=== PATIENT | female | born 1960 | race Caucasian/White ===

== ENCOUNTER 2020-11-30 13:25 | Inpatient (IN) | payer OTHER ==
[~2020-11-30] VITALS: Ht 170.2 cm; Wt 117.9 kg
[~2020-11-30 13:25] MED LIST: CITALOPRAM HYDR40 M1 PO; HYDROCHLOROTHIA25 MG PO; LOSARTAN POTASS50 M1 PO; MECLIZINE HYDRO25 M1 PO; METFORMIN HYDR500 M1 PO; NEU300 PO; RISPERIDONE2 M1 PO; SIMVASTATIN20 M1 PO
[2020-11-30 13:36] VITALS: Ht 170.2 cm; Wt 117.9 kg
--- NOTE | 2020-11-30 14:03 | NUR ---
MD BAÑUELOS AT BEDSIDE FOR MSE. PT IN ED FOR INTERMITTENT MID STERNAL CP X3 WEEKS, WORSE AT NIGHT. RADIATES TO LT ARM AND BACK. STS FEELS LIKE INDIGESTION; SMOKES 2 PACKS/DAY. PT CONNECTED TO FULL CM. REPORTS "HEAVINESS" TO CHEST WHEN PAIN COMES ON. STS WAIT 3 WKS TO COME IN BECAUSE "MY FRIEND AND DON'T WANT ME TO ." AND STS "I WANT TO SEE IF I'M HAVING A HEART ATTACK OR NOT."
--- NOTE | 2020-11-30 14:30 | NUR ---
PORTABLE CXR AT BEDSIDE.
--- NOTE | 2020-11-30 14:35 | NUR ---
PT REFUSING IV AT THIS TIME. NO IV MEDS ORDERED AT THIS TIME.
[2020-11-30 14:46] LABS: CALCIUM 8.8 mg/dL (8.5-10.1); CARBON DIOXIDE 32.4 mmol/L (21-32); CHLORIDE SERUM 101 mmol/L (98-107); GFR1 > 60 mL/min; GLUCOSE SERUM 181 mg/dL (74-106); POTASSIUM SERUM 3.5 mmol/L (3.5-5.1); SODIUM SERUM 140 mmol/L (136-145)
[2020-11-30 14:48] LABS: PLATELET COUNT 220 x10^3mcL (179-408)
[2020-11-30 14:49] LABS: BASOPHIL % 3.4 % (0.2-1.3)
[2020-11-30 14:51] LABS: ALBUMIN 3.3 g/dL (3.4-5.0); ALKALINE PHOSPHATASE 101 U/L (46-116); ALT/SGPT 42 U/L (14-59); AST/SGOT 111 U/L (15-37); BILIRUBIN TOTAL 0.6 mg/dL (0.20-1.00); TOTAL PROTEIN, SERUM 6.9 g/dL (6.4-8.2)
--- NOTE | 2020-11-30 15:25 | NUR ---
STATES CHEST PAIN ONLY AT NIGHT ,NOW FREE OF PAIN,
[2020-11-30 16:40] LABS: rbc morphology (normal/abnorm) NORMAL (NORMAL)
[2020-11-30 17:02] LABS: AMPHETAMINE QUAL UR NONE DETECTED (See below)
--- NOTE | 2020-11-30 17:11 | NUR ---
PT ADMITTED, DENIES CHEST PAINS OR SOB,CLOTH SPREADER IN SR NO ECTOPY,RESP. EASY
--- NOTE | 2020-11-30 17:12 | NUR ---
HEPRIN DRIP STARTED PER PROTOCOL
--- NOTE | 2020-11-30 19:22 | NUR ---
REPORT RECEIVED FROM LANDRY DAWSON TO ASSUME CARE OF PT.
--- NOTE | 2020-11-30 19:45 | NUR ---
PT IS RESTING IN GURNEY, AA&OX4, RESP E/U, NAD NOTED. PT DENIES ANY ANGINA AND DENIES ANY SOB AT THIS TIME. 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 CALL LIGHT IS WITHIN REACH. HEPARIN DRIP INFUSING IN R ARM AT 1000U/HR.
[2020-11-30] MEDS ORDERED: GRALISE600 MG PO (19:52)
[2020-11-30] MEDS ORDERED: CELEXA40 MG PO (19:53)
[2020-11-30] MEDS ORDERED: ZOCOR20 MG PO (19:53)
[2020-11-30] MEDS ORDERED: ELA50 PO (19:53)
[2020-11-30] MEDS ORDERED: RESTORIL15 MG GT (19:54)
--- NOTE | 2020-11-30 20:23 | NUR ---
PT TAKEN TO RADIOLOGY.
--- NOTE | 2020-11-30 21:16 | NUR ---
RISPERDAL NOT IN ED PYXIS, PER PHARM WILL HAVE READY FOR PICKUP IN 5-10 MINUTES.
--- NOTE | 2020-11-30 21:44 | NUR ---
PT MEDICATED PER MD ORDER. PT VERBALIZED UNDERSTANDING OF MEDICATION PRIOR TO ADMINISTRATION. CALL LIGHT IS WITHIN REACH. PT IS AA&OX4, RESP E/U, NAD NOTED. PT DENIES ANY CHEST PAIN OR SOB. PT WHEELED TO RESTROOM AT THIS TIME.
--- NOTE | 2020-11-30 22:48 | NUR ---
PTT HAD BEEN ORDERED TO BE DRAWN AT 2019. LAB DRAW WAS CANCELED BY LAB DUE TO MD ORDER. ORDER REVIEWED BY MYSELF AND ALINE DAWSON. STAT PTT ORDERED AT THIS TIME PER NURSING PROTOCOL.
--- NOTE | 2020-11-30 22:53 | NUR ---
PER PT OK TO SPEAK WITH CHAI DOMINIQUE CONSERNING PT'S CARE.
--- NOTE | 2020-11-30 23:24 | NUR ---
PT IS RESTING IN GURNEY, RESP E/U, NAD NOTED, HEPARIN IS INFUSING IN R ARM AT 1000 UNITS/HR. PTT RESULTS ARE PENDING. 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 CALL LIGHT IS WITHIN REACH.
--- NOTE | 2020-12-01 00:31 | NUR ---
REPORT GIVEN TO KECIA DAWSON TO ASSUME CARE OF PT.
--- NOTE | 2020-12-01 00:32 | NUR ---
REPORT GIVEN TO KECIA DAWSON TO ASSUME CARE OF PT.
[2020-12-01 01:30] VITALS: BP 108/72
--- NOTE | 2020-12-01 01:42 | NUR ---
RECEIVED PT FROM ER, PT ADMIT FOR CHEST PAIN. PT IS A/O X4, VERBAL RESPONSIVE. LUNG SOUND WHEEZING HELEN. BUT PO2 98% IN ROOM AIR. DENY ANY SOB. PT IS ON TELE 20, NSR, C/O CHEST PAIN 8/10, BOWEL SOUND PRESENT ALL 4 QUADRANTS, ROUND, PEDAL PULSE PRESENT BOTH FEET, NO EDEMA, IV AT RIGHT FA, LEFT AC, PT CONTINUE ON HEPARIN DRIP FROM ER. ALL ADLS ASSIST, ALL NEED MET, CALL LIGHT IN REACH, WILL CONTINUE TO MONITOR.
--- NOTE | 2020-12-01 02:41 | NUR ---
NOTICED THAT HEPARIN DRIP SHEET DONE BY ROGELIO WAS USING PT'S ACTUAL WEIGHT WHILE EMAR STATES TO USE PT'S ADJUSTED WEIGHT OF 84 KG. NEW HEPARIN DOSING FORM FILLED OUT WITH CALCULATIONS BASED ON WT 84KG. MD NICHOLE PAGED, TELEPHONE READBACK ORDER TO CONTINUE WITH NEW HEPARIN DOSING.
--- NOTE | 2020-12-01 02:59 | NUR ---
PT MEDICATED PER MD ORDER. PT VERBALIZED UNDERSTANDING OF MEDICATION PRIOR TO ADMINISTRATION. IV HEPARIN INFUSION INCREASED TO 1300 UNITS/HOUR PER NURSING PROTOCOL. PRIMARY RN KRISHAN MADE AWARE.
[2020-12-01 06:06] VITALS: BP 125/70
--- NOTE | 2020-12-01 06:11 | NUR ---
PT IS LAYING IN BED WITH EYES CLOSED BUT EASY TO AROUSE. DENIES CP OR ANY DISCOMFORT AT THIS TIME. BREATHING REMAINS EVEN AND UL ON RA, NO SOB NOTED. NO SIGNIFICANT CHANGES AT THIS TIME. REMAINS IN STABLE CONDITION. ALL NEEDS HAVE BEEN MET. BED IN LOWEST POSITION. CALL LIGHT IS W/IN REACH. WILL ENDORSE CARE TO DAY SHIFT NURSE.
[2020-12-01 06:32] LABS: BASOPHIL % 1.3 % (0.2-1.3); PLATELET COUNT 199 x10^3mcL (179-408); RED CELL DISTRIBUTION WIDTH 14.3 % (12.3-17.7)
--- NOTE | 2020-12-01 08:00 | NUR ---
AAOX4. NO SOB AT RM AIR. DENIES CP. HEPARIN GTT PER PROTOCOL AT 1300U/HR INFUSING VIA RFA IVF SITE; SITE PATENT AND WITHOUT INFILTRATION. SL ON THE LAC INTACT AND PATENT. DENIES CP; NSG ASSESSMENT DONE; WILL CONTINUE TO MONITOR STATUS.
[2020-12-01 08:33] LABS: CHOLESTEROL/HDL RATIO 2.8
[2020-12-01 08:48] VITALS: BP 129/89
--- NOTE | 2020-12-01 09:05 | NUR ---
DR. TYSON CALLED TO INFROM THAT PT NEEDS TO BE TRANSFERRED TO [facility] DUE TO NSTMI. HE SAID CASTING TECHNICIAN IS AWARE; HE ORDERED PT WILL BE NPO AFTER BREAKFAST DR. TYSON ASKED TO SPEAK WITH PATIENT WHO ACCEPTED THE CALL AND TALKED TO DR. TYSON.
[2020-12-01 09:12] LABS: rbc morphology (normal/abnorm) NORMAL (NORMAL)
[2020-12-01 09:56] VITALS: BP 129/89
[2020-12-01 09:59] LABS: CALCIUM 8.6 mg/dL (8.5-10.1); CHLORIDE SERUM 102 mmol/L (98-107); CREATININE SERUM 0.8 mg/dL (0.6-1.0); GFR1 > 60 mL/min; GLUCOSE SERUM 157 mg/dL (74-106); MAGNESIUM 1.7 mg/dL (1.8-2.4); POTASSIUM SERUM 3.4 mmol/L (3.5-5.1); SODIUM SERUM 142 mmol/L (136-145)
[2020-12-01 10:09] LABS: CARBON DIOXIDE 24.8 mmol/L (21-32)
--- NOTE | 2020-12-01 10:40 | NUR ---
PT LEFT THE UNIT VIA ACLS; HEPARIN GTT WAS DC'D BEFORE LEAVING THE UNIT.
--- NOTE | 2020-12-01 12:06 | NUR ---
PT LEFT THE UNIT AAOX4, DENIES CP; RESP E/U AT RM AIR. SL ON THE LAC INTACT AND PATENT. RFS IVF SITE ACCIDENTALLY CAME OUT AFTER PT USED AND AMBULATED FROM THE BATHROOM.
--- NOTE | 2020-12-01 14:47 | NUR ---
ECHOCARDIOGRAM NOT DONE-DISCHARGED
== END 2020-12-01 10:35 | disposition short-term general hospital (02) | DRG 190 ==
LOC: ED 13:25 → DU 15:36
PROVIDERS: Emergency Medicine; ADMIT Internal Medicine; ATTEND Internal Medicine
DX: I21.4 Non-ST elevation (NSTEMI) myocardial infarction (principal); E11.40 Type 2 diabetes mellitus with diabetic neuropathy, unspecified; Z20.822 Contact with and (suspected) exposure to COVID-19; I10 Essential (primary) hypertension; M54.9 Dorsalgia, unspecified; J44.9 Chronic obstructive pulmonary disease, unspecified; F41.9 Anxiety disorder, unspecified; F31.9 Bipolar disorder, unspecified; F17.210 Nicotine dependence, cigarettes, uncomplicated; F12.90 Cannabis use, unspecified, uncomplicated; E66.01 Morbid (severe) obesity due to excess calories; E78.5 Hyperlipidemia, unspecified; E78.00 Pure hypercholesterolemia, unspecified; K21.9 Gastro-esophageal reflux disease without esophagitis; Z90.49 Acquired absence of other specified parts of digestive tract; Z79.899 Other long term (current) drug therapy; Z79.891 Long term (current) use of opiate analgesic; Z79.01 Long term (current) use of anticoagulants; Z79.84 Long term (current) use of oral hypoglycemic drugs; Z79.82 Long term (current) use of aspirin; Z68.41 Body mass index [BMI] 40.0-44.9, adult; Z71.6 Tobacco abuse counseling
CPT/HCPCS: 82962; 83880; G0378; J1644; J1815; Q9967